=== PATIENT | male | born 1940 | race Caucasian/White ===

== ENCOUNTER 2016-09-03 08:59 | Day surgery (SDC) | payer OTHER ==
--- NOTE | 2016-09-02 15:27 | EKG Report ---
Test Performed on : 09/02/2016 1:58:20 PM Test Reason : PAT Blood Pressure : / mmHG Vent. Rate : 105 BPM Atrial Rate : 105 BPM P-R Int : 142 ms QRS Dur : 088 ms QT Int : 348 ms P-R-T Axes : 058 035 047 degrees QTc Int : 459 ms Sinus tachycardia. Low voltage QRS Borderline ECG When compared with ECG of 09-JUN-2012 15:30, No significant change was found Confirmed by Chris Hodges MD ([id number]) on 09/03/2016 9:42:03 PM
[2016-09-03] MEDS ORDERED: KEFZOL 2 GM/D5W 50 ML ONE (09:27)
[2016-09-03] MEDS ORDERED: LR 1,000 ML ONE ×2 (09:27→13:40)
[2016-09-03] MEDS ORDERED: REGLAN ONE (09:35)
[2016-09-03] MEDS ORDERED: PEPCID ONE (09:35)
[2016-09-03] MEDS ORDERED: XYLOCAINE 1%/EPI 1:100,000 ONE (14:53)
[2016-09-03] MEDS ORDERED: MARCAINE 0.25% PF/EPI 1:200,000 ONE (14:53)
[2016-09-03] MEDS ORDERED: NS 250 ML ONE (14:53)
[2016-09-03] MEDS ORDERED: HEPARIN ONE (14:53)
[2016-09-03] MEDS ORDERED: DIPRIVAN 1% ONE (16:45)
[2016-09-03] MEDS ORDERED: ZOFRAN IV PRN (16:46)
[2016-09-03] MEDS ORDERED: NORCO-7.5 PO PRN (16:46)
[2016-09-03] MEDS ORDERED: DECADRON ONE (17:05)
[2016-09-03] MEDS ORDERED: XYLOCAINE-MPF 2% ONE (17:05)
--- NOTE | 2016-09-03 17:18 | Diag Imaging Result Document ---
PROCEDURE NAME: CHEST-PORTABLE - 09/03/2016 PORTABLE CHEST: FINDINGS: There is a right-sided jugular line. The tip overlies the mid to distal superior vena cava. No pneumothorax. The heart is not enlarged. The vessels are not distended. No pleural effusions identified. IMPRESSION: No postprocedural pneumothorax.
[2016-09-03 17:55] VITALS: BP 138/70
--- NOTE | 2016-09-09 16:24 | OPERATIVE NOTE ---
PROCEDURE DATE: 09/03/2016 PREOP DIAGNOSIS: Myelodysplastic syndrome. POSTOP DIAGNOSIS: Myelodysplastic syndrome. PROCEDURE: Insertion of tunneled central venous catheter with subcutaneous port using fluoroscopic and ultrasound guidance. SURGEON: Torsten Ash MD. ANESTHESIA: General. ESTIMATED BLOOD LOSS: 3 mL. COMPLICATIONS: None apparent. SPECIMENS: None. FINDINGS: The right internal jugular vein was visualized with the Site-Rite ultrasound was found to be compressible and patent. The tip of the catheter was positioned to the superior vena cava right atrial junction with fluoroscopy. TECHNIQUE: He was brought to the operating room placed supine on the table. General anesthesia was induced. He was prepped and draped in usual sterile fashion; 0.25% Marcaine with epinephrine was used to anesthetize our skin incision. An incision was made below the right clavicle with a 15-blade. Dissection was carried down through the subcutaneous fat with cautery. A pocket was created anterior to the pectoral fascia with cautery and blunt finger dissection. The right internal jugular vein was visualized with the Site-Rite ultrasound. The skin over the vein was anesthetized with Marcaine. A 1 cm incision was made with 11-blade in the skin. The vein was accessed under ultrasound guidance with 1 stick. The wire passed through the needle into the vein and was confirmed to be in the right atrium with fluoroscopy. The wire was fixed to the drape. The catheter was tunneled subcutaneously from the lower incision out through the neck incision. The dilator and sheath were passed over the wire. The wire and dilator were removed. The catheter was passed into the sheath. The sheath was removed. The tip of the catheter was positioned to the superior vena cava right atrial junction under fluoroscopy. The catheter was then cut to size and fixed to the port. The port was anchored to the fascia with 2-0 Surgipro at 2 o'clock, 6 o'clock and 10 o'clock. The port was accessed and tiara back blood easily. It was flushed with heparin saline. The incisions were closed with interrupted subcutaneous 3-0 Polysorb and a running 4-0 subcuticular Monocryl and Steri-Strips. There were no apparent complications. She was awakened in stable condition and transferred to recovery room where a chest x-ray was ordered.
== END 2016-09-03 17:55 | disposition home or self-care (01) ==
LOC: OPS 08:59
PROVIDERS: ATTEND Surgery
DX: D46.9 Myelodysplastic syndrome, unspecified (principal)
CPT/HCPCS: 71010; 77001; 93005; 93010; C1788; J0690; J1100; J7050; J7120

== ENCOUNTER 2016-09-08 09:27 | Day surgery (SDC) | payer OTHER ==
[2016-09-08] MEDS ORDERED: TYLENOL ONE (10:18)
[2016-09-08] MEDS ORDERED: BENADRYL ONE (10:18)
[2016-09-08] MEDS ORDERED: NS 250 ML ONE (10:19)
[2016-09-08 13:28] VITALS: BP 142/72
== END 2016-09-08 13:00 | disposition home or self-care (01) ==
LOC: INF 09:27
PROVIDERS: ATTEND Internal Medicine Hematology & Oncology
DX: D69.6 Thrombocytopenia, unspecified (principal); Z79.899 Other long term (current) drug therapy; Z79.51 Long term (current) use of inhaled steroids; Z79.82 Long term (current) use of aspirin
CPT/HCPCS: 36430; 86850; 86900; 86901; J7050; P9035

== ENCOUNTER 2016-12-29 14:20 | Inpatient (IN) ==
[2016-12-29] MEDS ORDERED: NS 500 ML ONE (18:55)
[2016-12-29] MEDS ORDERED: VENTOLIN HFA INH PRN (21:39)
[2016-12-29] MEDS ORDERED: MIRALAX PO SCH (23:30)
[2016-12-30 07:05] LABS: ALBUMIN 3.3 g/dL (3.5-5.0); MAGNESIUM 2.4 mg/dL (1.5-2.7); POTASSIUM 3.8 mmol/L (3.5-5.1); TOTAL BILIRUBIN 0.56 mg/dL (0.20-1.00); TOTAL PROTEIN 5.6 g/dL (6.3-8.3)
[2016-12-30 08:04] LABS: HEMATOCRIT 34.9 % (42.0-52.0); HEMOGLOBIN 10.6 g/dL (14.0-18.0); MANUAL DIFF NEEDED? YES; MCH 28.2 PG (27-31); MCHC 30.4 g/dL (33-37); MCV 92.8 FL (81-99); RBC 3.76 XMIL (4.7-6.1)
[2016-12-30 08:06] LABS: PLT 33 X1000 (130-400)
--- NOTE | 2016-12-30 08:28 | Diag Imaging Result Doc PS360 ---
EXAM: LUNG SCAN / VQ INDICATION: r/o pe TECHNIQUE: 37.3 mCi of aerosolized technetium 99 DTPA was administered for the ventilation portion of the scan. 5.5 mCi of IV technetium 99 MAA was administered for the perfusion portion of the scan. COMPARISON: None. FINDINGS: There are no definite matched or unmatched segmental perfusion defects. The ventilation portion of the scan is unremarkable. IMPRESSION: Negative VQ scan. Electronically signed by Tim Gross 12/30/2016 8:25 AM
--- NOTE | 2016-12-30 08:37 | Diag Imaging Result Doc PS360 ---
EXAM: CHEST-2 VIEWS HISTORY: Comparison TECHNIQUE: COMPARISON: 09/03/2016 FINDINGS: There is a right jugular line. No pneumothorax. The lungs are well expanded. The heart is not enlarged. The vessels are not distended. There is increased density in the lung bases in addition to the upper to mid right lung. IMPRESSION: Infiltrates in the upper right lung and in the lung bases. Electronically signed by Jamari Wood 12/30/2016 8:35 AM
[2016-12-30 09:33] LABS: BANDS 4 % (0-1); LYMPHS 14 % (21-51); NRBC 6 % (0-0)
[2016-12-30] MEDS: FLONASE NAS SCH (09:36)
[2016-12-30] MEDS: VESICARE PO SCH (09:36)
[2016-12-30] MEDS: NS 1,000 ML IV SCH (09:36)
[2016-12-30] MEDS: DOXYCYCLINE PO SCH (09:36)
[2016-12-30] MEDS: ASPIRIN EC PO SCH (09:36)
[2016-12-30] MEDS: LOFIBRA PO SCH (09:36)
[2016-12-30] MEDS: PRILOSEC PO SCH (09:36)
[2016-12-30] MEDS: ALLEGRA PO SCH (09:36)
[2016-12-30] MEDS: LEVAQUIN 500 MG/D5W 500 MG/100 ML IVPB IV SCH (09:37)
--- NOTE | 2016-12-30 10:19 | Diag Imaging Result Doc PS360 ---
EXAM: CT THORAX W/O CONTRAST - 12/30/2016 HISTORY: MDS, dyspnea TECHNIQUE: Without contrast per request of the referring provider. Dose reduction protocol. COMPARISON: None. FINDINGS: There are possibly mild COPD changes. There are no large emphysematous bulla identified. There is an irregular infiltrative process at the posterior right upper lobe. There is ill-defined infiltrate at the superior left lower lobe. There is no substantial pleural effusion or pneumothorax identified. There calcified granulomas from old granulomatous disease at the left upper lobe. There are scattered nonspecific subcentimeter noncalcified pulmonary nodular densities. There are nonspecific small mediastinal lymph nodes. Included sections of the upper abdomen show splenomegaly, spleen measuring 18 cm in AP dimension. The entire spleen is not included on the exam, however. IMPRESSION: Mild COPD changes. Irregular infiltrate at posterior right upper lobe. Ill-defined infiltrate at the superior left lower lobe. Old granulomatous disease. A few scattered nonspecific small pulmonary nodular opacities. Nonspecific small mediastinal lymph nodes. Splenomegaly. Electronically signed by Bayron Calle 12/30/2016 10:17 AM
--- NOTE | 2016-12-30 19:30 | CONSULTATION ---
DATE OF CONSULTATION: 12/30/2016 REQUESTING PHYSICIAN: Nnamdi Akhtar MD. REASON FOR CONSULTATION: Myelodysplastic syndrome and dyspnea. HISTORY OF PRESENT ILLNESS: Mr. Perez is a 76-year-old, white male with a 104-eboz-ffwy history for tobacco (nonsmoker for several years), obesity, gastroesophageal reflux, with recurrent anemia and thrombocytopenia due to myelodysplastic syndrome. The patient presented to Dr. Akhtar's office with increased shortness of breath. He denies fevers, chills or significant sputum production. Chest x-ray was performed which revealed upper lobe infiltrate. CT scan of the thorax was performed which revealed right upper lobe pneumonia and left lower lobe pneumonia. PAST MEDICAL HISTORY: 1. Recent diagnosis of myelodysplastic syndrome as per above. 2. Gastroesophageal reflux. Patient frequently eats the largest meal of the day as his evening meal. He does not have the head of his bed elevated. 3. COPD. PFTs obtained on 11/05/2016 revealed moderate obstruction with an FEV 1 of 1.76 L or 63% of predicted. He had significant improvement following bronchodilator. 4. Prostate cancer status post prostate surgery. 5. Status post benign growth removed from the right submandibular region several years ago. 6. Status post benign cyst removed from the left graff. 7. Dyslipidemia. 8. History of nephrolithiasis. 9. History of cholelithiasis. 10. Status post appendectomy. SOCIAL HISTORY: The patient is retired from the [employer] He denies chemical or industrial exposures. Prior tobacco use. FAMILY HISTORY: Positive for diabetes, hypertension, and dyslipidemia. REVIEW OF SYSTEMS: Notable for shortness of breath on any exertion. He does report some improvement with Spiriva. He denies prior sleep apnea evaluation. PHYSICAL EXAMINATION: General: Reveals an obese, white male, resting comfortably, and in no distress. Vital signs: BP 128/60, heart rate 94, respiration rate 18, oxygen saturation 96% on room air. HEENT: Pupils are equal and reactive. Oropharynx is clear. Neck: Supple. Chest: Reveals good air entry bilaterally. No E to A changes are appreciated. Cardiac Examination: Distant heart sounds. Normal S1, normal S2. Abdomen: Obese and soft. Extremities: Reveal trace edema. LABORATORIES: White blood count 23,000, hemoglobin 10.6000, platelet count 33,000. IMPRESSION: A 76-year-old with chronic obstructive pulmonary disease, community-acquired pneumonia, truncal obesity, dyspnea, gastroesophageal reflux disease. The patient has leukocytosis and thrombocytopenia possibly related to his treatments. He had normal white blood count and platelet count 8 days ago. RECOMMENDATIONS: 1. Continue Levaquin for 7 days for community-acquired pneumonia. If he clinically looks well, he can follow up in my clinic in 1 week with a chest x-ray. The patient will need to demonstrate clearing on his x-ray to make sure that he does not have some unusual pathogen or other pulmonary process which has not yet been identified. 2. Gastroesophageal reflux precautions were discussed at length. Patient needs to elevate the head of his bed. He should stop eating for at least 3 hours before going to bed. The smallest meal of the day should be at supper. 3. Although difficult, a 35 pound weight loss would significantly decrease his dyspnea. 4. We will schedule outpatient overnight oximetry after he has completed his antibiotics. The patient may need a sleep apnea evaluation. 5. Adjustment and current inhaler regimen is anticipated after his acute illness has been completed. This will be performed in the office as well. 6. If he is doing well clinically, he could be discharged tomorrow. cc: MD Nnamdi Forte MD
[2016-12-30] MEDS: MIRALAX PO SCH (22:09)
[2016-12-31] MEDS: ALLEGRA PO SCH (09:19)
[2016-12-31] MEDS: DOXYCYCLINE PO SCH (09:19)
[2016-12-31] MEDS: PRILOSEC PO SCH (09:19)
[2016-12-31] MEDS: FLONASE NAS SCH (09:19)
[2016-12-31] MEDS: VESICARE PO SCH (09:19)
[2016-12-31] MEDS: ASPIRIN EC PO SCH (09:20)
[2016-12-31] MEDS: LOFIBRA PO SCH (09:20)
[2016-12-31] MEDS: LEVAQUIN 500 MG/D5W 500 MG/100 ML IVPB IV SCH (09:20)
[2016-12-31 12:25] LABS: BASO% 0.3 % (0.0-0.8); EOS# 0.06 X1000 (0.0-0.7); EOS% 0.3 % (0.0-10.0); HEMOGLOBIN 9.4 g/dL (14.0-18.0); IMM GRAN% 7.3 % (0.0-0.5); LYMPH# 2.76 X1000 (1.2-3.4); LYMPH% 11.9 % (20.5-51.1); MANUAL DIFF NEEDED? YES; MCH 27.2 PG (27-31); MCHC 29.4 g/dL (33-37); MCV 92.8 FL (81-99); MONO# 4.28 X1000 (0.11-0.59); MONO% 18.4 % (1.7-9.3); NEUT% 61.8 % (42.2-75.2); PLT 32 X1000 (130-400); RBC 3.45 XMIL (4.7-6.1)
[2016-12-31 12:54] LABS: ALBUMIN 3.2 g/dL (3.5-5.0); CALCIUM 8.3 mg/dL (8.8-10.2); POTASSIUM 4.5 mmol/L (3.5-5.1); TOTAL BILIRUBIN 0.46 mg/dL (0.20-1.00); TOTAL PROTEIN 5.9 g/dL (6.3-8.3)
[2016-12-31 12:55] LABS: LYMPHS 16 % (21-51); MONO 2 % (1-9); NRBC 2 % (0-0)
[2016-12-31] MEDS: NS 1,000 ML IV SCH ×2 (15:36→17:21)
[2016-12-31] MEDS: SPIRIVA INH SCH (17:54)
[2016-12-31] MEDS: MIRALAX PO SCH (20:37)
[2017-01-01] MEDS: NS 1,000 ML IV SCH (04:54)
[2017-01-01] MEDS: SPIRIVA INH SCH (08:11)
[2017-01-01] MEDS: ASPIRIN EC PO SCH (08:47)
[2017-01-01] MEDS: LEVAQUIN 500 MG/D5W 500 MG/100 ML IVPB IV SCH (08:47)
[2017-01-01] MEDS: FLONASE NAS SCH (08:47)
[2017-01-01] MEDS: VESICARE PO SCH (08:47)
[2017-01-01] MEDS: DOXYCYCLINE PO SCH (08:47)
[2017-01-01] MEDS: PRILOSEC PO SCH (08:47)
[2017-01-01] MEDS: ALLEGRA PO SCH (08:47)
[2017-01-01] MEDS: LOFIBRA PO SCH (08:47)
[2017-01-01 12:36] VITALS: BP 128/53
--- NOTE | 2017-04-18 12:04 | DISCHARGE SUMMARY ---
ADMISSION DATE: 12/29/2016 DISCHARGE DATE: 01/01/2017 HISTORY OF PRESENT ILLNESS AND HOSPITAL COURSE: Mr. John Perez is a very pleasant 76-year-old male well known to Dr. Akhtar with a history of myelodysplastic syndrome with refractory anemia. The patient presented to Dr. Akhtar's clinic and had reports of significant dyspnea. Upon presentation to the clinic the patient's saturation was in the low 90s. The patient's O2 saturation did not improve with oxygen therapy. Additionally the patient reported subjective fever and chills. The patient was zapata cultured in clinic and it was decided that the patient would be admitted to [facility]. Upon admission to [facility] the patient was found to have pneumonia on chest x-ray. Lung scan, V/Q scan was negative for pulmonary embolism. The patient was placed on IV antibiotics and seen by Dr. Chavez in consult. After 3 days of IV antibiotics the patient's respiratory status significantly improved. Vital signs significantly improved as well. The patient was afebrile and deemed appropriate for discharge. DISCHARGE INSTRUCTIONS: The patient was scheduled for follow up with Dr. Chavez in clinic and placed on p.o. antibiotics for discharge home. The above reflects the plan of Dr. Akhtar. Dictated by FREDI Mccoy for Nnamdi Akhtar MD cc: FREDI Mccoy MD
== END 2017-01-01 13:13 | disposition home or self-care (01) ==
LOC: DIRADM 14:20 → 4N 15:53
PROVIDERS: ADMIT Internal Medicine Hematology & Oncology; ATTEND Internal Medicine Hematology & Oncology